=== PATIENT | female | born 1975 | race Caucasian/White ===

== ENCOUNTER 2017-11-21 10:39 | Emergency (ER) | payer BC, SELFPAY ==
[2017-11-21 10:49] VITALS: BP 136/96; PULSE 82; RESP 20; TEMP 36.6; O2SAT 98; BMI 28.1
[2017-11-21 11:01] LABS: Apearance,Urine Cloudy (Clear); Color,Urine Yellow (Yellow); PH,Urine 6.5 (5.0-8.5)
[2017-11-21 11:02] LABS: Bilirubin,Urine Negative (Negative); Blood, Urine 1+ (Negative); Glucose,Urine (UA) Negative (Negative); Ketones,Urine Negative (Negative); Protein,Urine 1+ (Negative); Specific Gravity, Urine 1.025 (1.005-1.030); UTC Leukocyte Esterase,Urine 2+ (Negative); UTC Nitrate,Urine Positive (Negative); Urobilinogen,Urine 0.2 EU/dl (0.2)
--- NOTE | 2017-11-21 11:11 | HMH.EDUTC ---
[facility] [place] Disposition Clinical Impression: UTI (urinary tract infection) Qualifiers: Urinary tract infection type: site unspecified Hematuria presence: with hematuria Qualified Code(s): N39.0 - Urinary tract infection, site not specified; R31.9 - Hematuria, unspecified Disposition: Home, Self-Care Condition on Discharge: Good Instructions: Urinary Tract Infection, DI for Urinary Tract Infection (UTI) Additional Instructions: *Increase fluids. Water not Soda or Tea *Start antibiotic immediately and be sure to take as ordered for the FULL length of time although you should start to see improvement over the next 48 hours *Pyridium as needed Remember this medication will turn your urine [place]. This is normal but it will stain what ever it gets on *You should not use Pyridium for more than 48 hours. If so , follow up with your primary physician to review urine culture and ensure that antibiotic is adequate for infection *Be SURE to follow up anytime for new or worsening symptoms. AND in 48 hours for urine culture results AND in 10-14 days to repeat UA to ensure infection is resolved and blood no longer present *Be sure to let your PCP know that we sent urine cultures from the [facility] so they can follow up to ensure that you area the on the correct antibiotic Prescriptions: Phenazopyridine HCl [Pyridium 200mg Tablet] 200 pow PO TID #6 tab Sulfamethoxazole/Trimethoprim [Bactrim DS tablet] 1 each PO BID #20 tab Referrals: Itz Trinidad MD [Primary Care Provider] - As needed Time of Disposition: 11:25 Medical Decision Making - Medical Records Medical records reviewed: Yes: I reviewed the patient's medical records. - Chapo Inquiry Pt receiving controlled substance: No Chapo was queried for this patient: No Vital Signs: 11/21/17 10:49 Temperature 98 F Temperature Source Temporal Artery Scan Pulse Rate [Brachial] 82 Respiratory Rate 20 Blood Pressure [Right Arm] 136/96 Blood Pressure Mean [Right Arm] 109 Blood Pressure Position [Right Arm] Sitting 02 Sat by Pulse Oximetry 98 Oxygen Delivery Method Room Air - Lab Data Lab results reviewed: Yes: I reviewed the patient's lab results. Lab Results 11/21/17 10:41: Urine Color Yellow, Urine Appearance Cloudy, Urine pH 6.5, Ur Specific [place] 1.025, Urine Protein 1+, Urine Glucose (UA) Negative, Urine Ketones Negative, Urine Blood 1+, Urine Nitrate Positive A, Urine Bilirubin Negative, Urine Urobilinogen 0.2, Ur Leukocyte Esterase 2+ A Orders (Tests/Meds): ORDERS Category Date Time Status Urine Culture Stat Micro 11/21/17 11:00 Received [facility] [place] HPI - General Stated complaint: Poss UTI Time Seen by Provider: 11/21/17 11:11 Mode of Arrival: Ambulatory Source of Information: Patient Limitations: No Limitations Description of Symptoms (Recalled from Triage Doc. by RN): FEELS LIKE SHE HAS A UTI, SMELL, BURNING X 2 DAYS HEENT Symptoms (Recalled from RN notes): No Resp Symptoms (Recalled from RN notes): No Skin Symptoms (Recalled from RN notes): No MS Symptoms (Recalled from RN notes): No Functional Status (Recalled from RN notes): NA - History of Present Illness Provider Complaint: Patient state that she thinks she may have UTI State that she noticed strong odor to her urine and having some slight pain in her lower back area around her kidneys and burning with urination State that she has had Kidney infection before and this feels alot like it did then - Related Data Home Medications Medication Instructions Recorded Confirmed Loratadine [Claritin 10mg Tablet] 10 mg PO DAILY 11/21/17 11/21/17 Montelukast Sodium [Singulair 10mg 10 mg PO PM 11/21/17 11/21/17 tablet] Previous Rx's Medication Instructions Recorded Phenazopyridine HCl [Pyridium 200 pow PO TID #6 tab 11/21/17 200mg Tablet] Sulfamethoxazole/Trimethoprim 1 each PO BID #20 tab 11/21/17 [Bactrim DS tablet] Allergies Allergy/AdvReac Type Severity Reaction Status Date / Scotty
--- NOTE | 2017-11-21 11:20 | ED_ITS ---
[facility] Disposition Clinical Impression: UTI (urinary tract infection) Qualifiers: Urinary tract infection type: site unspecified Hematuria presence: with hematuria Qualified Code(s): N39.0 - Urinary tract infection, site not specified ; R31.9 - Hematuria, unspecified Disposition: Home, Self-Care Condition on Discharge: Good Instructions: Urinary Tract Infection, DI for Urinary Tract Infection (UTI) Additional Instructions: *Increase fluids. Water not Soda or Tea *Start antibiotic immediately and be sure to take as ordered for the FULL length of time although you should start to see improvement over the next 48 hours *Pyridium as needed Remember this medication will turn your urine [place]. This is normal but it will stain what ever it gets on *You should not use Pyridium for more than 48 hours. If so , follow up with your primary physician to review urine culture and ensure that antibiotic is adequate for infection *Be SURE to follow up anytime for new or worsening symptoms. AND in 48 hours for urine culture results AND in 10-14 days to repeat UA to ensure infection is resolved and blood no longer present *Be sure to let your PCP know that we sent urine cultures from the [facility] so they can follow up to ensure that you area the on the correct antibiotic Prescriptions: Phenazopyridine HCl [Pyridium 200mg Tablet] 200 pow PO TID #6 tab Sulfamethoxazole/Trimethoprim [Bactrim DS tablet] 1 each PO BID #20 tab Referrals: Itz Trinidad MD [Primary Care Provider] - As needed Time of Disposition: 11:25 Medical Decision Making - Medical Records Medical records reviewed: Yes: I reviewed the patient's medical records. - Chapo Inquiry Pt receiving controlled substance: No Chapo was queried for this patient: No Vital Signs: 11/21/17 10:49 Temperature 98 F Temperature Source Temporal Artery Scan Pulse Rate [Brachial] 82 Respiratory Rate 20 Blood Pressure [Right Arm] 136/96 Blood Pressure Mean [Right Arm] 109 Blood Pressure Position [Right Arm] Sitting 02 Sat by Pulse Oximetry 98 Oxygen Delivery Method Room Air - Lab Data Lab results reviewed: Yes: I reviewed the patient's lab results. Lab Results 11/21/17 10:41: Urine Color Yellow, Urine Appearance Cloudy, Urine pH 6.5, Ur Specific [place] 1.025, Urine Protein 1+, Urine Glucose (UA) Negative, Urine Ketones Negative, Urine Blood 1+, Urine Nitrate Positive A, Urine Bilirubin Negative, Urine Urobilinogen 0.2, Ur Leukocyte Esterase 2+ A Orders (Tests/Meds): ORDERS Category Date Time Status Urine Culture Stat Micro 11/21/17 11:00 Received [facility] HPI - General Stated complaint: Poss UTI Time Seen by Provider: 11/21/17 11:11 Mode of Arrival: Ambulatory Source of Information: Patient Limitations: No Limitations Description of Symptoms (Recalled from Triage Doc. by RN): FEELS LIKE SHE HAS A UTI, SMELL, BURNING X 2 DAYS HEENT Symptoms (Recalled from RN notes): No Resp Symptoms (Recalled from RN notes): No Skin Symptoms (Recalled from RN notes): No MS Symptoms (Recalled from RN notes): No Functional Status (Recalled from RN notes): NA - History of Present Illness Provider Complaint: Patient state that she thinks she may have UTI State that she noticed strong odor to her urine and having some slight pain in her lower back area around her kidneys and burning with urination State that she has had Kidney infection before and this feels alot like it did then - Relat
[2017-11-21 11:26] VITALS: BP 136/96; PULSE 82; RESP 20; TEMP 36.6; O2SAT 98
== END 2017-11-21 11:27 | disposition home or self-care (01) ==
PROVIDERS: Emergency Provider Nurse Practitioner; Family Provider Internal Medicine Adolescent Medicine; PCP Internal Medicine Adolescent Medicine
DX: N39.0 Urinary tract infection, site not specified (principal); Z88.0 Allergy status to penicillin
CPT/HCPCS: 81003; 87086; 87088; 87186; 99201

== ENCOUNTER → 2018-03-20 08:53 | Outpatient (CLI) | payer BC, SELFPAY ==
--- NOTE | 2018-03-20 08:55 | MM_ITS ---
MM Dig screening mamm BI w/CAD CAD Screening COMPARISON: Digital mammograms with CAD 08/02/2012 INDICATION: There is no personal or family history of breast cancer TECHNIQUE: Standard CC and MLO images were obtained. R2 CAD reviewed. FINDINGS: Scattered fibroglandular densities are seen in both breasts. There is a possible change in fibroglandular densities subareolar region left breast with suggestion of architectural distortion on MLO view. There is benign-appearing calcification there this area as well. Recommend patient return for spot compression MLO view and 90 degrees lateral view and spot cc view of the subareolar region. There is no other suspicious adenopathy seen. IMPRESSION: Fibrofatty parenchyma possible change in fibro glandular densities left breast BI-RADS Category: 0 Need Additional Imaging Evaluation RECOMMENDED FOLLOW-UP: IMM - IMMEDIATE FOLLOW-UP RECOMMENDED (A letter has been sent to the patient regarding results of the study.)
== END ==
PROVIDERS: PCP Internal Medicine Adolescent Medicine; Visit Provider Obstetrics & Gynecology
DX: Z12.31 Encounter for screening mammogram for malignant neoplasm of breast (principal)
CPT/HCPCS: 77067

== ENCOUNTER → 2018-03-30 15:00 | Outpatient (CLI) | payer BC, SELFPAY ==
--- NOTE | 2018-03-30 15:03 | MM_ITS ---
MM Dig mamm DX unilat LT CAD Ordering Physician: Julien Soto MD Patient Age: 42 years: Female HISTORY: ITS.REASON: abnormal mammogram. Procedure. Spot CC and MLO and 90 degree view initially performed. Thereafter 4 breast rolled cc views were also included. Indication. Other study performed to further evaluate some questionable nodularity at the left breast retroareolar region.:. Today's left diagnostic mammogram left, compared to July 2012,, June 2011, November 18, 2017 studies Findings We again see Moderately dense heterogeneous breast pattern on the left. There subtle diffuse accentuation breast elements throughout left breast- either the patient's -control pills or premenstrual status. No focal dominant mass nor suspicious calculation. Prior films are very helpful and supportive stable mild asymmetry with no with no new areas of significant concern. Particular attention directed towards the retroareolar region and the fibroglandular elements here, at seem to dissipate and change from one view to another. I believe this is stable appearance but to be cautious I would suggest a follow-up left mammogram in 6-8 months to confirm stability IMPRESSION... No significant new areas of concern.. Evident on these additional views of left breast Asymmetric breast elements left retroareolar region. I believe stable but would suggest a follow-up left mammogram in 6-8 months to fully confirm stability here BI-RADS Category: 3 Probably Benign Finding Short Term Follow-up RECOMMENDED FOLLOW-UP: 6M - 6 MONTH FOLLOW-UP (A letter has been sent to the patient regarding the results of the study.)
== END ==
PROVIDERS: PCP Internal Medicine Adolescent Medicine; Visit Provider Obstetrics & Gynecology
DX: R92.8 Other abnormal and inconclusive findings on diagnostic imaging of breast (principal)
CPT/HCPCS: 77065

== ENCOUNTER → 2018-08-08 08:33 | Outpatient (POV) | payer BC, SELFPAY | PROVIDERS: Visit Provider Dermatology | DX: Z00.00 Encounter for general adult medical examination without abnormal findings (principal) ==

== ENCOUNTER → 2018-10-13 12:54 | Outpatient (CLI) | payer BC, SELFPAY ==
--- NOTE | 2018-10-13 12:57 | MM_ITS ---
MM Dig mamm DX unilat LT CAD INDICATION: Follow-up asymmetric density. ORDERING PHYSICIAN: Julien Soto MD PATIENT AGE: 43 years COMPARISON: 03/30/2018, 03/20/2018, 08/02/2012 TECHNIQUE: Standard images performed along with problem-solving views as before. FINDINGS: Asymmetric density once again noted in the retroareolar region similar to the previous exam which appear to compress out on the spot compression views. No malignant appearing mass or malignant appearing microcalcification is evident. There are stable asymmetric density in the medial aspect of the left breast as well. IMPRESSION: Benign findings. No evidence of malignancy. Recommend resume screening mammogram in 6 months BI-RADS Category: 2 Benign Finding(s) RECOMMENDED FOLLOW-UP: 6M - 6 MONTH FOLLOW-UP (A letter has been sent to the patient regarding results of the study.)
== END ==
PROVIDERS: PCP Internal Medicine Adolescent Medicine; Visit Provider Obstetrics & Gynecology
DX: R92.8 Other abnormal and inconclusive findings on diagnostic imaging of breast (principal)
CPT/HCPCS: 77065

== ENCOUNTER → 2018-11-07 08:22 | Outpatient (POV) | payer BC, SELFPAY | PROVIDERS: Visit Provider Dermatology | DX: Z00.00 Encounter for general adult medical examination without abnormal findings (principal) ==

== ENCOUNTER → 2019-04-02 15:54 | Outpatient (CLI) | payer BC, SELFPAY ==
--- NOTE | 2019-04-02 15:56 | MM_ITS ---
PROCEDURE: MM DIG SCREENING MAMM BI W/CAD CLINICAL INDICATION: SCREENING There is no personal or family history of breast cancer. COMPARISON: [facility] MM Dig screening mamm BI w/CAD from 03/20/2018 DXLT MM Dig mamm DX unilat LT CAD from 03/30/2018 DIG MAMM-DX UNI-LT from 10/13/2018 TECHNIQUE: Standard CC and MLO images were obtained. R2 CAD reviewed. FINDINGS: Moderate fibroglandular densities are seen in the central portions of both breast. There is a benign-appearing calcification left breast there is no suspicious lesion and no suspicious microcalcifications. IMPRESSION: Fibrofatty parenchyma with no suspicious lesions seen BI-RAD Category: 2 Benign Finding(s) FOLLOW-UP: 1YR 1 Year Follow-up (A letter has been sent to the patient regarding results of the study.) Dictated by: Dr. Azeem Ruffin MD 04/03/2019 16:[address] Azeem Ruffin MD in [place] 04/03/2019 16:56
== END ==
PROVIDERS: PCP Internal Medicine Adolescent Medicine; Visit Provider Obstetrics & Gynecology
DX: Z12.31 Encounter for screening mammogram for malignant neoplasm of breast (principal)
CPT/HCPCS: 77067

== ENCOUNTER → 2019-04-16 10:45 | Outpatient (CLI) | payer BC, SELFPAY ==
[2019-04-16 14:59] LABS: Anion Gap 13.9 mEq/L (5-15); Blood Urea Nitrogen 5 mg/dL (7-18); Calcium 8.9 mg/dL (8.5-10.1); Carbon Dioxide 27 mmol/L (21.0-32.0); Chloride 105 mmol/L (98-107); Chol/HDL Ratio 4.7 (1-3.5); Cholesterol 252 mg/dL (140-200); Creatinine,Serum 0.74 mg/dL (0.55-1.02); Estimated Glomerular Filt Rate 86 ml/min (>60); GFR (African American) 104 ML/MIN (>60); Glucose 120 mg/dL (74-106); HDL Cholesterol 54 mg/dL (29-89); LDL Cholesterol 159 mg/dL (0-130); Potassium 3.9 mmoL/L (3.5-5.1); Sodium 142 mmol/L (136-145); Thyroid Stimulating Hormone 2.24 uIU/ml (0.358-3.740); Triglycerides 197 mg/dL (30-200); VLDL Cholesterol 39 mg/dL (0-40)
[2019-04-16 17:29] LABS: Hemoglobin A1C 5.8 % (0.0-7.0)
== END ==
PROVIDERS: Visit Provider Internal Medicine Adolescent Medicine
DX: R03.0 Elevated blood-pressure reading, without diagnosis of hypertension (principal)
CPT/HCPCS: 36415; 80048; 80061; 83036; 84443

== ENCOUNTER → 2019-06-14 08:20 | Outpatient (CLI) | payer BC, SELFPAY ==
--- NOTE | 2019-06-14 08:20 | CT_ITS ---
PROCEDURE: CT SINUS WO CON CLINICAL HISTORY: congestion Deviated septum, nasal pressure, pressure behind the ears COMPARISON: SINUS CT SINUS (MAX-FACIAL W/O CONT) from 11/28/2014 TECHNIQUE: Axial images obtained with sagittal and coronal reformats. All CT scans at the facility use one or more dose reduction, viz: automated exposure control, ma/kV adjustment per patient size (including targeted exams where dose is matched to indication, i.e. head), or iterative reconstruction technique. FINDINGS: No significant mucosal thickening or sinus air-fluid level. There is moderate rightward nasal septal deviation with a small septal spur projecting toward the right resulting in severe narrowing of the right nasal canal. There are small bilateral christopher bullosa. The ostiomeatal units are patent. The orbits have an unremarkable appearance. Unremarkable TMJs.. No mastoid effusion IMPRESSION: 1. Moderate rightward nasal septal deviation with septal spur causing severe nasal canal narrowing. 2. No evidence of sinusitis Dictated by: Erich Trinidad MD 06/14/2019 17:35 Electronically signed by Erich Trinidad MD in [place] 06/14/2019 17:35
== END ==
PROVIDERS: PCP Internal Medicine Adolescent Medicine; Visit Provider Otolaryngology
DX: R09.81 Nasal congestion (principal)
CPT/HCPCS: 70486

== ENCOUNTER 2019-11-28 17:50 | Emergency (ER) | payer BC, SELFPAY ==
[2019-11-28 18:00] VITALS: BP 148/92; PULSE 73; RESP 20; TEMP 36.8; O2SAT 97; BMI 32.3
--- NOTE | 2019-11-28 18:08 | HMH.EDUTC ---
[facility] [place] Disposition Clinical Impression: Allergic rhinitis Qualifiers: Allergic rhinitis trigger: unspecified Allergic rhinitis seasonality: unspecified Qualified Code(s): J30.9 - Allergic rhinitis, unspecified Disposition: Home, Self-Care Condition on Discharge: Good Instructions: Allergic Rhinitis, DI for Allergic Rhinitis Additional Instructions: *Monitor Temp, Over the counter Motrin or Tylenol as directed/as needed Tylenol every 4 hours and Motrin every 6 hours (as long as your family doctor has told you that you can take it) for fever or pain. and straight to ER if unable to lower temp less than 101.0 after medication given *Warm salt water gargles may help to soothe the throat *Throat Lozenges *Warm fluids like tea with honey may help to soothe the throat *Sleep elevated *Humidifier/Vaporizer *Flonase 2 sprays in each nostril daily but be aware that it may take 2-3 days before you notice improvement Use inhaler as prescribed Follow up IMMEDIATELY for new or worsening symptoms or no Noticeable improvement over the next 48-72 hours. 911 for difficulty breathing or swallowing Prescriptions: Albuterol Sulfate [Proventil-HFA 90mcg/puff Inh] 1 - 2 puffs IH Q6HP PRN #1 inh PRN Reason: Shortness Of Breath Transmission Status: Pending to [facility] Referrals: Itz Trinidad MD [Primary Care Provider] - As needed Time of Disposition: 18:14 Medical Decision Making - Chapo Inquiry Pt receiving controlled substance: No Chapo was queried for this patient: No Vital Signs: 11/28/19 18:00 Temperature 98.2 F Temperature Source Oral Pulse Rate [Right Brachial] 73 Respiratory Rate 20 Blood Pressure [Right Arm] 148/92 H Blood Pressure Mean [Right Arm] 110 Blood Pressure Source [Right Arm] Automatic Cuff Blood Pressure Position [Right Arm] Sitting 02 Sat by Pulse Oximetry 97 Oxygen Delivery Method Room Air [facility] [place] HPI - General Stated complaint: Cough Time Seen by Provider: 11/28/19 18:09 Mode of Arrival: Ambulatory Source of Information: Patient Limitations: No Limitations Description of Symptoms (Recalled from Triage Doc. by RN): PATIENT C/O ASTHMATIC COUGH X 1 WEEK HEENT Symptoms (Recalled from RN notes): No Resp Symptoms (Recalled from RN notes): Yes Skin Symptoms (Recalled from RN notes): No MS Symptoms (Recalled from RN notes): No Functional Status (Recalled from RN notes): WNL - History of Present Illness Provider Complaint: Neil states that her allergies have been really bad and she has been taking her zyrtec but for last coulple of days her cough has been bad and she hasnt got an inhaler at home States that he cough is like an asmatic cough and has continued to get worse States that she hasnt had a fever or any flu like symptoms but when it gets this bad she usually gets a steriod shot to help - Related Data Home Medications Medication Instructions Recorded Confirmed Loratadine [Claritin 10mg 10 mg PO DAILY 11/21/17 06/04/19 Tablet] Montelukast Sodium [Singulair 10mg 10 mg PO PM 11/21/17 06/04/19 tablet] Previous Rx's Medication Instructions Recorded norgestimate-ethinyl estradiol 1 tab PO DAILY 30 Days #30 tab 02/20/19 Albuterol Sulfate [Proventil-HFA 1 - 2 puffs IH Q6HP PRN #1 inh 11/28/19 90mcg/puff Inh] Allergies Allergy/AdvReac Type Severity Reaction Status Date / Time Penicillins [PENICILLINS] Allergy Unknown Verified 06/04/19 13:04 - Worker's Comp Is this a Worker's Comp case?: No [facility] History - Hepatitis A Screen Drug use history?: No High risk sexual behaviors?: No History of sexually transmitted infection?: No Currently employed?: No Childcare worker?: No Do you have indoor plumbing?: Yes Do you have electricity?: Yes Attestation statement:: This patient has been screened for Hepatitis A risk factors. I have reviewed the patient's past medical history: Yes Other Medical History: Reports: Other Comment: Fx. Isaac (age
[2019-11-28 18:20] VITALS: BP 148/92; PULSE 73; RESP 20; TEMP 36.8; O2SAT 97
== END 2019-11-28 18:24 | disposition home or self-care (01) ==
PROVIDERS: Emergency Provider Nurse Practitioner; PCP Internal Medicine Adolescent Medicine
DX: J30.9 Allergic rhinitis, unspecified (principal); Z88.0 Allergy status to penicillin; Z90.09 Acquired absence of other part of head and neck
CPT/HCPCS: 96372; 99201

== ENCOUNTER → 2020-04-23 07:51 | Outpatient (CLI) | payer BC, SELFPAY ==
--- NOTE | 2020-04-23 08:11 | MM_ITS ---
PROCEDURE: MM DIG SCREENING MAMM BI W/CAD Digital Breast Tomosynthesis Included CLINICAL INDICATION: screening There is a history of breast cancer patient's maternal great aunt. COMPARISON: MG DXLT MM Dig mamm DX unilat LT CAD from 03/30/2018 MG DIG MAMM-DX UNI-LT from 10/13/2018 MG MM DIG SCREENING MAMM BI W/CAD from 04/02/2019 TECHNIQUE: Standard CC and MLO images and 3D Tomosynthesis was obtained. R2 CAD reviewed. FINDINGS: Mild to moderate scattered fibroglandular densities are seen in the subareolar regions and central portions of both breasts. There is a benign-appearing microcalcification left breast. Normal there is no suspicious lesion and no suspicious microcalcifications. IMPRESSION: Fibrofatty parenchyma with no suspicious lesions seen BI-RAD Category: 2 Benign Finding(s) FOLLOW-UP: 1YR 1 Year Follow-up (A letter has been sent to the patient regarding results of the study.) Dictated by: Dr. Azeem Ruffin MD 04/28/2020 14:44 Dr. Azeem Ruffin MD in [place] 04/28/2020 14:44
== END ==
PROVIDERS: PCP Internal Medicine Adolescent Medicine; Visit Provider Obstetrics & Gynecology
DX: Z12.31 Encounter for screening mammogram for malignant neoplasm of breast (principal)
CPT/HCPCS: 77063; 77067

== ENCOUNTER 2020-07-12 18:51 | Emergency (ER) | payer BC, SELFPAY ==
[2020-07-12 19:12] LABS: Apearance,Urine Cloudy (Clear); Color,Urine Straw (Yellow); Glucose,Urine (UA) Negative (Negative); Ketones,Urine Negative (Negative); Protein,Urine Negative (Negative)
[2020-07-12 19:13] LABS: Bilirubin,Urine Negative (Negative); Blood, Urine Trace (Negative)
[2020-07-12 19:14] LABS: Urobilinogen,Urine 0.2 EU/dl (0.2)
[2020-07-12 19:15] LABS: UTC Leukocyte Esterase,Urine Trace (Negative); UTC Nitrate,Urine Negative (Negative)
[2020-07-12 19:17] VITALS: BP 146/102; PULSE 95; RESP 20; TEMP 36.3; O2SAT 99; BMI 28.0
--- NOTE | 2020-07-12 19:38 | HMH.EDUTC ---
[facility] [place] Disposition Clinical Impression: Dysuria UTI (urinary tract infection) Qualifiers: Urinary tract infection type: site unspecified Hematuria presence: with hematuria Qualified Code(s): N39.0 - Urinary tract infection, site not specified Disposition: Home, Self-Care Condition on Discharge: Good Instructions: Urinary Tract Infection, Urine Culture Additional Instructions: Drink plenty of fluids. Take tylenol or ibuprofen for pain or fever. Take the medications as directed. Follow up with your regular doctor. GO TO THE ER FOR ANY WORSENING SYMPTOMS The pyridium will make your urine turn orange, this is an expected side effect. It will stain your clothes if it comes into contact with them. Prescriptions: Ondansetron [Zofran 4mg ODT] 4 mg PO Q8HP PRN #12 tab.rapdis PRN Reason: Nausea Transmission Status: Pending to [facility] # Sulfamethoxazole/Trimethoprim [Bactrim DS tablet] 1 each PO BID 7 Days #14 tab Transmission Status: Pending to [facility] # Fluconazole [Diflucan 150mg tab] 150 mg PO ONCE #1 tab Transmission Status: Pending to [facility] # Phenazopyridine HCl [Pyridium 200mg Tablet] 200 pow PO TID #6 tab Transmission Status: Pending to [facility] # Referrals: Itz Trinidad MD [Primary Care Provider] - Time of Disposition: 19:52 Medical Decision Making - Medical Records Medical records reviewed: No: I reviewed the patient's medical records. - Chapo Inquiry Pt receiving controlled substance: No Vital Signs: 07/12/20 19:17 Temperature 97.4 F L Temperature Source Oral Pulse Rate [Right Brachial] 95 H Respiratory Rate 20 Blood Pressure [Right Arm] 146/102 H Blood Pressure Mean [Right Arm] 116 Blood Pressure Source [Right Arm] Automatic Cuff Blood Pressure Position [Right Arm] Sitting 02 Sat by Pulse Oximetry 99 Oxygen Delivery Method Room Air - Lab Data Lab results reviewed: Yes: I reviewed the patient's lab results. Lab Results 07/12/20 18:57: Urine Color Straw, Urine Appearance Cloudy, Urine pH 6.0, Ur Specific [place] 1.010, Urine Protein Negative, Urine Glucose (UA) Negative, Urine Ketones Negative, Urine Blood Trace, Urine Nitrate Negative, Urine Bilirubin Negative, Urine Urobilinogen 0.2, Ur Leukocyte Esterase Trace Orders (Tests/Meds): ED MEDICATIONS Discontinued Medications Generic Name Dose Route Start Last Admin Trade Name Julio PRN Reason Stop Dose Admin Ondansetron HCl 4 mg 07/12/20 19:43 07/12/20 19:52 Ondansetron 4mg Odt SL 07/12/20 19:44 4 mg ONCE ONE Administration Phenazopyridine HCl 200 mg 07/12/20 19:43 07/12/20 19:52 Phenazopyridine 200mg Tablet PO 07/12/20 19:44 200 mg ONCE ONE Administration Trimethoprim/Sulfamethoxazole 1 each 07/12/20 19:43 07/12/20 19:52 Sulfa/Trimethoprim 1 Tablet PO 07/12/20 19:44 1 each ONCE ONE Administration Protocol ORDERS Category Date Time Status Urine Culture Routine Micro 07/12/20 19:05 Received [facility] [place] HPI - General Stated complaint: Possible UTI Time Seen by Provider: 07/12/20 19:39 Mode of Arrival: Ambulatory Source of Information: Patient Limitations: No Limitations Description of Symptoms (Recalled from Triage Doc. by RN): PATIENT C/O URINARY FREQUENCY X 2 DAYS HEENT Symptoms (Recalled from RN notes): No Resp Symptoms (Recalled from RN notes): No Skin Symptoms (Recalled from RN notes): No MS Symptoms (Recalled from RN notes): No Functional Status (Recalled from RN notes): WNL - History of Present Illness Provider Complaint: She states that for the past 2 days she has had low back pain and dysuria. She has a history of getting uti's at times. She denies any fever/chills. She thinks that she has a very early UTI - Related Data Home Medications Medication Instructions Recorded Confirmed Loratadine [Claritin 10mg 10 mg PO DAILY 11/21/17 06/04/19 Tablet] Mo
[2020-07-12 19:58] VITALS: BP 146/102; PULSE 95; RESP 20; TEMP 36.3; O2SAT 99
== END 2020-07-12 20:00 | disposition home or self-care (01) ==
PROVIDERS: Emergency Provider Nurse Practitioner Family; PCP Internal Medicine Adolescent Medicine
DX: N30.00 Acute cystitis without hematuria (principal); R03.0 Elevated blood-pressure reading, without diagnosis of hypertension; Z88.0 Allergy status to penicillin
CPT/HCPCS: 81003; 87086; 87088; 87186; 99202; G0463

== ENCOUNTER → 2021-05-06 15:58 | Outpatient (CLI) | payer BC, SELFPAY ==
--- NOTE | 2021-05-06 16:01 | MM_ITS ---
PROCEDURE INFORMATION: Exam: MG Bilateral Screening 3D Mammography Exam date and time: 05/06/2021 4:01 PM Age: 45 years old Clinical indication: Encounter for screening mammogram for malignant neoplasm of breast TECHNIQUE: Imaging protocol: Bilateral screening tomosynthesis and 2D mammography including computer-aided detection (CAD) when performed. COMPARISON: 1. MG MM DIG SCREENING MAMM BI W/CAD 04/23/2020 8:23 AM 2. MG MM DIG SCREENING MAMM BI W/CAD 04/02/2019 4:11 PM FINDINGS: MAMMOGRAPHY: Breast composition: The breast tissue is composed of scattered areas of fibroglandular density. Mass: None. Architectural distortion: None. Calcifications: No suspicious calcifications. Asymmetric density: None. Skin thickening: None. Axillary adenopathy: None. IMPRESSION: No mammographic evidence of malignancy. Annual screening is recommended unless otherwise clinically indicated. ASSESSMENT: BI-RADS Category 1: Negative
== END ==
PROVIDERS: PCP Internal Medicine Adolescent Medicine; Visit Provider Obstetrics & Gynecology
DX: Z12.31 Encounter for screening mammogram for malignant neoplasm of breast (principal)
CPT/HCPCS: 77063; 77067

== ENCOUNTER → 2021-05-26 15:48 | Outpatient (POV) | payer BC, SELFPAY | PROVIDERS: Visit Provider Dermatology | DX: Z00.00 Encounter for general adult medical examination without abnormal findings (principal) ==

== ENCOUNTER → 2022-04-28 16:26 | Outpatient (CLI) | payer BC, SELFPAY ==
--- NOTE | 2022-04-28 16:32 | XR_ITS ---
FINAL REPORT CLINICAL HISTORY: PAIN FINDINGS: LEFT FOOT Three views of the left foot demonstrate no acute fracture or dislocation. The joint spaces are preserved. The soft tissues are unremarkable. IMPRESSION: No acute bony abnormality. Reviewed, Interpreted and Dictated by Vikash Malone MD Transcribed by Geno Gupta Authenticated and [facility]
== END ==
LOC: RAD 16:27
PROVIDERS: PCP Internal Medicine Adolescent Medicine; Visit Provider Internal Medicine Adolescent Medicine
DX: M79.672 Pain in left foot (principal)
CPT/HCPCS: 73630

== ENCOUNTER 2023-05-29 14:31 | Emergency (ER) | payer BC, SELFPAY ==
[2023-05-29 15:00] VITALS: BP 152/91; PULSE 102; RESP 18; TEMP 37.1; O2SAT 95; BMI 29.5
--- NOTE | 2023-05-29 15:16 | ED_ITS ---
Discharge Plan Disposition Patient Disposition: Home, Self-Care Condition: Good Prescriptions Prescriptions: New azithromycin [Zithromax] 250 mg tablet 250 mg PO UD DOSE PK Qty: 6 0RF Rx Instructions: Take two (2) tablets today, then one (1) tablet days #2 thru #5 benzonatate [benzonatate] 100 mg capsule 100 mg PO TIDP PRN (Reason: Cough) Qty: 30 0RF methylprednisolone 4 mg Tablets,Dose Pack 4 mg PO DIRECTED 6 Days Qty: 21 0RF Rx Instructions: Take 1 pack as directed for 6 days No Action valacyclovir [Valtrex] 500 mg tablet 500 mg PO DAILY montelukast 10 MG tablet 10 mg PO PM albuterol sulfate 200 PUFFS HFA aerosol inhaler 1 - 2 puffs inhalation Q6HP PRN (Reason: Shortness Of Breath) Qty: 1 0RF cetirizine [Zyrtec] 10 mg Tablet 10 mg PO DAILY Jardiance 10 mg tablet 10 mg PO DAILY Patient Comments: TAKE ONE TABLET BY MOUTH EVERY DAY IN THE MORNING Referrals Follow up/Referrals: Itz Trinidad MD [Primary Care Provider] - See instructions Activity Restrictions/Add. Instructions Additional Instructions/Restrictions: Drink plenty of fluids. Take tylenol or ibuprofen for pain or fever. Take the medications as directed. Follow up with your regular doctor. GO TO THE ER FOR ANY WORSENING SYMPTOMS Clinical Impressions Clinical Impression: Acute bronchitis, Sinusitis Instructions Patient Instructions: DI for Sinusitis, Sinusitis Discharge ED Provider: Tony Elias [facility] General Stated complaint: cough Time Seen by Provider: 05/29/23 15:16 History of Present Illness Provider Complaint: She states that for the past 1 month she has had sinus co ngestion and a cough. Related Data Home Medications Medication Instructions Recorded Confirmed montelukast 10 mg tablet 10 mg PO PM ALLERGIES 11/21/17 05/29/23 valacyclovir 500 mg tablet 500 mg PO DAILY 06/02/21 05/29/23 (Valtrex) cetirizine 10 mg tablet (Zyrtec) 10 mg PO DAILY allergies 05/29/23 05/29/23 empagliflozin 10 mg tablet 10 mg PO DAILY 05/29/23 05/29/23 (Jardiance) Previous Rx's Medication Instructions Recorded albuterol sulfate 90 mcg/actuation 1 - 2 puffs inhalation Q6HP PRN 11/28/19 aerosol inhaler Shortness Of Breath #1 inh azithromycin 250 mg tablet 250 mg PO UD DOSE PK #6 tabs 05/29/23 (Zithromax) benzonatate 100 mg capsule 100 mg PO TIDP PRN Cough #30 caps 05/29/23 methylprednisolone 4 mg tablets in 4 mg PO DIRECTED 6 days #21 tabs 05/29/23 a dose pack Allergies Allergy/AdvReac Type Severity Reaction Status Date / Time Penicillins [PENICILLINS] Allergy Unknown Verified 05/29/23 15:28 [facility] Disclaimer: The information contained in this section may have been updated after the patient was seen, as this information can be updated by other users. Surgical History History of 2 sections Social History Smoking Status: Never smoker alcohol intake: never substance use type: denies use current occupational status: employed Travel in the last 8 weeks: None household members: children housing: house ROS Obtained: Yes All systems reviewed & no additional complaints except as documented Constitutional Constitutional: Reports poor appetite Eyes Eyes: Reports system reviewed and no additional complaints, except as documented ENT Ears, Nose, Mouth, and Throat: Reports as per HPI Cardiovascular Cardiovascular: Reports system reviewed and no additional complaints, except as documented and Denies chest pain Respiratory Respiratory: Denies shortness of breath, Reports chest congestion, Reports coug h, Denies stridor and Denies wheezing Gastrointestinal Gastrointestingal: Reports system reviewed and no additional complaints, except as documented; Denies abdominal pain, diarrhea or vomiting Musculoskeletal Musculoskeletal: Reports system reviewed and no additional complaints, except as documented and Denies arthralgias Integumentary/Breasts Skin/Breast: Reports system reviewed and no additional complaints, except as documented and Denies rash Neurologic Neurologic: Denies paresthesias Allergic/Immunologic Allergic/Immunologic: Denies wheezing Physical Exam General General appearance: alert and in no apparent distress Head Head exam: atraumatic, normocephalic and normal inspection Eye Eye exam: Present normal appearance, PERRL and EOMI ENT ENT exam: Present normal exam, normal oropharynx, mucous membranes moist, TM's normal bilaterally and normal external ear exam Neck Neck exam: Present normal inspection, full ROM and trachea midline; Absent meningismus or lymphadenopathy Chest Chest inspection: Present normal inspection and symmetric chest wall rise; Absent tenderness Respiratory Respiratory exam: Present normal lung sounds bilaterally; Absent respiratory distress Cardiovascular Cardiovascular exam: Present regular rate and normal rhythm; Absent JVD Abdominal Exam Abdominal exam: Present soft and normal bowel sounds; Absent distention, tenderness or guarding Extremities Exam Extremities exam: Present normal inspection, full ROM and normal capillary refill; Absent calf tenderness Back Exam Back exam: Present normal inspection; Absent tenderness Neurological Exam Neurological exam: Present alert and oriented X3 Psychiatric Psychiatric exam: Present normal affect and normal mood Skin Skin exam: Present warm, dry, intact and normal color Lymphatic Lymphatic Findings: no adenopathy Medical Decision Making Medical Records Medical records reviewed: No I reviewed the patient's medical records. Chapo Inquiry Pt receiving controlled substance: No
[2023-05-29 16:01] VITALS: BP 152/91; PULSE 102; RESP 18; TEMP 37.1; O2SAT 95
== END 2023-05-29 16:01 | disposition home or self-care (01) ==
PROVIDERS: Emergency Provider Nurse Practitioner Family; PCP Internal Medicine Adolescent Medicine
DX: J20.9 Acute bronchitis, unspecified (principal); J01.90 Acute sinusitis, unspecified; R05.9 Cough, unspecified; R09.81 Nasal congestion; R09.89 Other specified symptoms and signs involving the circulatory and respiratory systems
CPT/HCPCS: 99212; 99214; G0463

== ENCOUNTER 2023-06-05 08:15 | Emergency (ER) | payer BC, SELFPAY ==
[2023-06-05 08:30] VITALS: BP 124/91; PULSE 89; RESP 18; TEMP 36.7; O2SAT 98; BMI 34.3
--- NOTE | 2023-06-05 08:47 | EXP.UTC ---
Discharge Plan Disposition Patient Disposition: Home, Self-Care Condition: Good Prescriptions Prescriptions: New fluticasone propionate [Flonase Allergy Relief] 50 mcg/actuation spray,suspension 1 - 2 spray intranasal DAILY Qty: 16 0RF Rx Instructions: administer into each nostril daily promethazine-DM 6.25-15 mg/5 mL syrup 5 ml PO Q6H PRN (Reason: cough) Qty: 118 0RF No Action Jardiance 10 mg tablet 10 mg PO DAILY Patient Comments: TAKE ONE TABLET BY MOUTH EVERY DAY IN THE MORNING Referrals Follow up/Referrals: Itz Trinidad MD [Primary Care Provider] - See instructions Activity Restrictions/Add. Instructions Additional Instructions/Restrictions: Use Promethazine- DM at night it may help you rest Use Flonase daily as prescribed Over the counter Coriciden Sinus HBP may help to relieve your congestion Follow up with your Family Doctor if no improvement or any worsening of symptoms Using a Cool Mist Humidifer or Vaporizer may help with cough and congestion Clinical Impressions Clinical Impression: Cough Qualifiers: Cough type: unspecified Qualified Code(s): R05.9 - Cough, unspecified Instructions Patient Instructions: Cough Discharge ED Provider: Piedad Fuller [facility] General Stated complaint: cough, sore throat, ear pain Mode of Arrival: Ambulatory Source of Information: Patient Limitations: No Limitations Time Seen by Provider: 06/05/23 08:48 Description of Symptoms (Recalled from Triage Doc. by RN): PATIENT C/O COUGH, SORE THROAT, AND FLUID IN EARS X 2 WEEKS HEENT Symptoms (Recalled from RN notes): Yes Resp Symptoms (Recalled from RN notes): Yes Skin Symptoms (Recalled from RN notes): No MS Symptoms (Recalled from RN notes): No Functional Status (Recalled from RN notes): WNL History of Present Illness Provider Complaint: Patient states that she was seen and treated for bronchitis on alpa States that she has finished her steriods and antibiotic but her cough has not got any better and keeping her up at night and making her throat raw and scratchy from the coughing and her ears still feel full of fluid Related Data Home Medications Medication Instructions Recorded Confirmed empagliflozin 10 mg tablet 10 mg PO DAILY 05/29/23 06/05/23 (Jardiance) Previous Rx's Medication Instructions Recorded fluticasone propionate 50 1 - 2 spray intranasal DAILY #16 06/05/23 mcg/actuation nasal grams spray,suspension (Flonase Allergy Relief) promethazine-DM 6.25 mg-15 mg/5 mL 5 ml PO Q6H PRN cough #118 mL 06/05/23 oral syrup Allergies Allergy/AdvReac Type Severity Reaction Status Date / Time Penicillins [PENICILLINS] Allergy Unknown Verified 05/29/23 15:28 Worker's Comp Is this a Worker's Comp case?: No [facility] Disclaimer: The information contained in this section may have been updated after the patient was seen, as this information can be updated by other users. Medical History (Updated 06/05/23 @ 09:01 by Piedad Fuller APRN) Tonsillar abscess Surgical History History of 2 sections Social History Smoking Status: Never smoker alcohol intake: never substance use type: denies use current occupational status: employed Travel in the last 8 weeks: None household members: children housing: house ROS Obtained: Yes All systems reviewed & no additional complaints except as documented and Yes Systems reviewed as appropriate & no additional complaints except as documented Constitutional Constitutional: Reports system reviewed and no additional complaints, except as documented and Reports as per HPI ENT Ears, Nose, Mouth, and Throat: Reports system reviewed and no additional complaints, except as documented, Reports as per HPI, Reports otalgia and Reports sore throat (scratchy from coughing so much ) Cardiovascular Cardiovascular: Reports system reviewed and no additional complaints, except as documented and Reports as per HPI Respiratory Respiratory: Reports system reviewed and no additional complaints, except as documented, Reports as per HPI, Denies shortness of breath, Denies chest congestion and Reports cough Gastrointestinal Gastrointestingal: Reports system reviewed and no additional complaints, except as documented and as per HPI Physical Exam General General appearance: alert and in no apparent distress ENT ENT exam: Present mucous membranes moist Expanded ENT Exam TM/Canal exam: Bilateral TM: bulging (clear) Throat exam: Present normal inspection Respiratory Respiratory exam: Present normal lung sounds bilaterally; Absent respiratory distress or wheezes Cardiovascular Cardiovascular exam: Present regular rate, normal rhythm and normal heart sounds Neurological Exam Neurological exam: Present alert, oriented X3 and normal gait Medical Decision Making Chapo Inquiry Pt receiving controlled substance: No Chapo was queried for this patient: No Vital Signs: 06/05/23 08:30 Temperature 98.1 F Temperature Source Oral Pulse Rate [Left Brachial] 89 Respiratory Rate 18 Blood Pressure [Left Arm] 124/91 H Blood Pressure Mean [Left Arm] 102 Blood Pressure Source [Left Arm] Automatic Cuff Blood Pressure Position [Left Arm] Sitting 02 Sat by Pulse Oximetry 98 Oxygen Delivery Method Room Air
[2023-06-05 09:04] VITALS: BP 124/91; PULSE 89; RESP 18; TEMP 36.7; O2SAT 98
== END 2023-06-05 09:15 | disposition home or self-care (01) ==
PROVIDERS: Emergency Provider Nurse Practitioner; PCP Internal Medicine Adolescent Medicine
DX: R05.9 Cough, unspecified (principal); R07.0 Pain in throat; H92.03 Otalgia, bilateral
CPT/HCPCS: 99212; 99214; G0463

== ENCOUNTER 2023-12-02 09:49 | Outpatient (CLI) | payer BC, SELFPAY ==
--- NOTE | 2023-12-02 09:53 | MM_ITS ---
PROCEDURE INFORMATION: Exam: MG Bilateral Screening 3D Mammography Exam date and time: 12/02/2023 9:45 AM Age: 48 years old Clinical indication: Screening examination TECHNIQUE: Imaging protocol: Bilateral Screening tomosynthesis and 2D mammography including computer-aided detection (CAD) when performed. COMPARISON: 1. MG MM DIG SCREENING MAMM BI W/CAD 05/06/2021 4:16 PM 2. MG MM DIG SCREENING MAMM BI W/CAD 04/23/2020 8:23 AM FINDINGS: MAMMOGRAPHY: Breast composition: There are scattered areas of fibroglandular density. Mass: None. Architectural distortion: None. Calcifications: No suspicious calcifications. Asymmetric density: None. Skin thickening: None. Axillary adenopathy: None. IMPRESSION: No mammographic evidence of malignancy. Annual screening is recommended unless otherwise clinically indicated. ASSESSMENT: BI-RADS Category 1: Negative
== END 2023-12-02 23:59 | disposition home or self-care (01) ==
LOC: RAD 09:49
PROVIDERS: PCP Internal Medicine Adolescent Medicine; Visit Provider Obstetrics & Gynecology Gynecology
DX: Z12.31 Encounter for screening mammogram for malignant neoplasm of breast (principal)
CPT/HCPCS: 77063; 77067

== ENCOUNTER 2024-04-18 16:00 | Outpatient (CLI) | payer BC, SELFPAY ==
--- NOTE | 2024-04-18 16:04 | XR_ITS ---
PROCEDURE INFORMATION: Exam: XR Chest Exam date and time: 04/18/2024 4:07 PM Age: 48 years old Clinical indication: Cough; Additional info: Chronic cough TECHNIQUE: Imaging protocol: Radiologic exam of the chest. Views: 2 views. COMPARISON: No relevant prior studies available. FINDINGS: Lungs: The lungs appear clear. No focal areas of consolidation. Pleural spaces: No pleural effusions. Negative for pneumothorax. Heart/Mediastinum: Cardiac silhouette and pulmonary vasculature are within range of normal. Bones/joints: There is no evidence of acute fracture. IMPRESSION: Negative for an acute cardiopulmonary abnormality.
== END 2024-04-18 23:59 | disposition home or self-care (01) ==
LOC: RAD 16:01
PROVIDERS: PCP Internal Medicine Adolescent Medicine; Visit Provider Internal Medicine Adolescent Medicine
DX: R05.3 Chronic cough (principal)
CPT/HCPCS: 71046

== ENCOUNTER 2024-04-24 14:46 | Outpatient (CLI) | payer BC, SELFPAY ==
[2024-04-24 15:30] VITALS: PULSE 82; PULSE 95
[2024-04-24] MEDS: ALBUTEROL 0.083% 2.5 MG/3 ML NEB IH (15:30)
== END 2024-04-24 23:59 | disposition home or self-care (01) ==
LOC: RT 14:46
PROVIDERS: PCP Internal Medicine Adolescent Medicine; Visit Provider Internal Medicine Adolescent Medicine
DX: R05.3 Chronic cough (principal)
CPT/HCPCS: 94060; 94640; 94726; 94729; J7613

== ENCOUNTER 2024-08-27 13:52 | Emergency (ER) | payer BC, SELFPAY ==
[2024-08-27] VITALS (7 sets, daily range): BP systolic 133–167; BP diastolic 75–91; PULSE 68–79; RESP 16–18; TEMP 37.1; O2SAT 97–100; BMI 29.5
--- NOTE | 2024-08-27 14:13 | XR_ITS ---
PROCEDURE INFORMATION: Exam: XR Chest Exam date and time: 08/27/2024 4:11 PM Age: 48 years old Clinical indication: Other: Mid upper abd pain TECHNIQUE: Imaging protocol: Radiologic exam of the chest. Views: 1 view. COMPARISON: CR XR CHEST 2V 04/18/2024 4:07 PM FINDINGS: Lungs: Unremarkable. No consolidation. Pleural spaces: Unremarkable. No pleural effusion. No pneumothorax. Heart/Mediastinum: Unremarkable. No cardiomegaly. Bones/joints: Unremarkable. IMPRESSION: No acute findings.
--- NOTE | 2024-08-27 14:15 | ECG_ITS ---
APPROVED REPORT Exam: Resting ECG HR:76 bpm ECG Measurements Heart Rate 76 AXES NH 157 P 12 QRSd 77 QRS 17 QT 380 T 23 QTc 411 Conclusion Sinus rhythm No acute ischemic changes Electronically signed by : ASHELY FROST, 08/28/2024 14:36:43
[2024-08-27 14:26] LABS: Microscopic, Urine URINE MICROSCOPIC (MICROSCOPIC)
[2024-08-27] MEDS: KETOROLAC 30MG/ML VIAL 15 MG IV (14:40)
[2024-08-27] MEDS: ACETAMINOPHEN 1,000MG/100ML VIAL 1000 MG IV (14:41)
[2024-08-27] MEDS: ONDANSETRON 4MG/2ML VIAL 4 MG IV (14:41)
[2024-08-27 14:59] LABS: Albumin Level 4.6 g/dl (3.5-5.0); Chloride 101 mmol/L (98-107); Potassium 3.5 mmoL/L (3.5-5.1); Sodium 139 mmol/L (136-145)
--- NOTE | 2024-08-27 14:59 | HMH.EDGENADL ---
Discharge Plan Disposition Patient Disposition: Home, Self-Care Chief Complaint: Abdominal Pain Prescriptions Prescriptions: No Action Jardiance 10 mg tablet 10 mg PO DAILY Patient Comments: TAKE ONE TABLET BY MOUTH EVERY DAY IN THE MORNING montelukast 10 mg tablet 10 mg PO DAILY Patient Comments: TAKE ONE TABLET BY MOUTH EVERY DAY rosuvastatin 10 mg tablet 10 mg PO DAILY Patient Comments: TAKE ONE TABLET BY MOUTH EVERY DAY levocetirizine 5 mg tablet 5 mg PO DAILY Patient Comments: TAKE ONE TABLET BY MOUTH EVERY DAY fluticasone propionate [Flonase Allergy Relief] 50 mcg/actuation spray,suspension 1 - 2 spray intranasal DAILY Qty: 16 0RF Rx Instructions: administer into each nostril daily Referrals Follow up/Referrals: Itz Trinidad MD [Primary Care Provider] - See instructions Arun Washington II, MD [Staff Physician] - See instructions Activity Restrictions/Add. Instructions Additional Instructions/Restrictions: No emergent medical condition identified today. As discussed on CT scan your liver was at the upper limits of normal had a small 1 cm incidental nonspecific lesion indicated by radiology with the recommended outpatient ultrasound. Additionally your AST is mildly elevated and is likely secondary to a component of fatty liver disease. If your symptoms persist please return to the emergency department otherwise I would recommend an outpatient follow-up for an EGD with Dr. Washington if he remains stable. There is some diagnostic uncertainty please return with any significant persistence or worsening of your symptoms. Clinical Impressions Clinical Impression: Epigastric abdominal pain, Lesion of liver, Elevated AST (SGOT), Obesity Instructions Patient Instructions: DI for Acute Abdominal Pain Print Language Print Language: Pashto Discharge ED Provider: Luis Mckeon General Adult HPI <Luis Mckeon MD - Last Filed: 08/27/24 15:10> General Chief complaint: Abdominal Pain Stated complaint: Abd/back pain Clammy feeling Time Seen by Provider: 08/27/24 14:19 Mode of Arrival: Ambulatory Source of Information: Patient Description of Symptoms (Recalled from ER Triage Doc. by RN): Pt presents for evaluation for evaluation of sudden onset of mid upper abd pain that started at 1240 today. Pt states the pain radiates around to the left of her back. Pt states when the pain started she became clammy, slight nausea, and felt flushed History of Present Illness HPI narrative: Please note that above description of symptoms, in this electronic medical record under categorization of recalled from ER triage doctor by RN are reflective of an initial nursing assessment, however, is not reflective of my full history and physical exam that was personally taken and clarified. Consequentially, this preceding description of symptoms, which may include the patient's categorized chief complaint in the EMR, do not reflect my personal clinical impression, and the ultimate description of history of present illness and patient stated complaints should be deferred to this section of the note. Unless stated otherwise or congruent with this section of the note, additional signs, symptoms, or incongruence should be interpreted as inaccurate with my clinical impression. Related Data Home Medications ?Medication ?Instructions ?Recorded ?Confirmed empagliflozin 10 mg tablet 10 mg PO DAILY 05/29/23 08/27/24 (Jardiance) levocetirizine 5 mg tablet 5 mg PO DAILY 08/27/24 08/27/24 montelukast 10 mg tablet 10 mg PO DAILY 08/27/24 08/27/24 rosuvastatin 10 mg tablet 10 mg PO DAILY 08/27/24 08/27/24 Previous Rx's ?Medication ?Instructions ?Recorded fluticasone propionate 50 1 - 2 spray intranasal DAILY #16 06/05/23 mcg/actuation nasal grams spray,suspension (Flonase Allergy Relief) Allergies Allergy/AdvReac Type Severity Reaction Status Date / Time Penicillins (PENICILLINS) Allergy Unknown Verified 05/29/23 15:28 [facility] <Luis Mckeon MD - Last Filed: 08/27/24 15:10> [facility] Disclaimer: The information contained in this section may have been updated after the patient was seen, as this information can be updated by other users. Medical History (Updated 08/27/24 @ 17:40 by Heather Dinh MD) Tonsillar abscess Surgical History History of 2 sections Social History Smoking Status: Never smoker alcohol intake: never substance use type: denies use current occupational status: employed Travel in the last 8 weeks: None household members: children housing: house Have you lived/traveled outside [place] in past 30 days?: No Contact w/someone who lives/traveled outside US past 30 days?: No Exposure to someone with infectious disease in past 14 days?: No Do you have a fever (greater than 100.4 F or 38 C)?: No Have you tested positive for COVID-19: No Exposed to someone with COVID-19 in past 14 days?: No Do you have a sore throat?: No Do you have a cough?: No Do you have any weakness?: Yes Do you have any diarrhea?: No Are you experiencing any unusual bleeding?: No Do you have any muscle aches/pain?: No Do you have any abdominal pain?: No Are you experiencing loss of taste or smell?: No Other Medical History Have you received the Flu Vaccine for this season: No Have you received the Pneumonia Vaccine: No <Luis Mckeon MD - Last Filed: 08/27/24 15:10> ROS Obtained: Yes All systems reviewed & no additional complaints except as documented Physical Exam <Luis Mckeon MD - Last Filed: 08/27/24 15:10> General General appearance: alert Head Head exam: atraumatic and normocephalic Eye Eye exam: Present normal appearance, PERRL and EOMI Neck Neck exam: Present normal inspection, full ROM and trachea midline Respiratory Respiratory exam: Absent respiratory distress, wheezes, stridor, accessory muscle use or prolonged expiratory phase Cardiovascular Cardiovascular exam: Present other (Pulses equal symmetric in upper and lower extremities) Abdominal Exam Abdominal exam: Present soft and Ayon's sign; Absent distention, tenderness, guarding, rebound, rigidity or pulsatile mass Abdominal tenderness: Present RUQ and moderate Extremities Exam Extremities exam: Absent edema Neurological Exam Neurological exam: Present alert, oriented X3 and CN II-XII intact; Absent motor sensory deficit Skin Skin exam: Present warm and dry; Absent diaphoresis or erythema Medical Decision Making <Luis Mckeon MD - Last Filed: 08/27/24 15:10> Medical Records Medical records reviewed: Yes I reviewed the patient's medical records. Screening: Per USPSTF and CDC recommendations, given the prevalence of disease in our region, it is our hospital?s policy to screen for HIV and viral Hepatitis for all patients aged 18 and over and those with ongoing risk factors. Chapo Inquiry Pt receiving controlled substance: No Chapo was queried for this patient: No Vital Signs: 08/27/24 14:09 08/27/24 14:30 08/27/24 15:00 Temperature 98.7 F Temperature Source Temporal Artery Scan Pulse Rate 79 68 Pulse Rate [Right] 79 Respiratory Rate 18 Blood Pressure 153/91 H 140/84 Blood Pressure [Right Arm] 133/75 Blood Pressure Mean [Right Arm] 94 Blood Pressure Source [Right Arm] Automatic Cuff Blood Pressure Position [Right Arm] Sitting 02 Sat by Pulse Oximetry 99 100 99 Oxygen Delivery Method Room Air 08/27/24 15:30 08/27/24 16:00 08/27/24 16:30 Temperature Temperature Source Pulse Rate 68 73 74 Pulse Rate [Right] Respiratory Rate Blood Pressure 147/87 H 154/91 H 149/91 H Blood Pressure [Right Arm] Blood Pressure Mean [Right Arm] Blood Pressure Source [Right Arm] Blood Pressure Position [Right Arm] 02 Sat by Pulse Oximetry 99 100 97 Oxygen Delivery Method Room Air Lab Data Lab Results 08/27/24 14:22: Urine Color Yellow, Urine Appearance Clear, Urine pH 5.5, Ur Specific [place] >= 1.030, Urine Protein Negative, Urine Glucose (UA) Negative, Urine Ketones Negative, Urine Blood Negative, Urine Nitrate Negative, Urine Bilirubin Negative, Urine Urobilinogen 0.2, Ur Leukocyte Esterase Negative, Urine RBC None, Urine WBC Occasional, Ur Squamous Epith Cells 3-5, Calcium Oxalate Crystal 2+, Urine Bacteria 2+ 08/27/24 14:39: WBC 13.7 H, RBC 4.95, Hgb 14.0, Hct 43.6, MCV 88.1, MCH 28.3, MCHC 32.1, RDW 13.4, Plt Count 292, MPV 10.3, Neut % (Auto) 77.6, Lymph % (Auto) 16.9, Burke % (Auto) 4.7, Eos % (Auto) 0.4, Baso % (Auto) 0.4, Neut # (Auto) 10.6 H, Lymph # (Auto) 2.3, Burke # (Auto) 0.6, Eos # (Auto) 0.1, Baso # (Auto) 0.1, Sodium 139, Potassium 3.5, Chloride 101, Carbon Dioxide 28, Anion Gap 13.5, BUN 14, Creatinine 0.80, Estimated Creat Clear 123, Estimated GFR 77, Est GFR ( Amer) 93, Glucose 139 H, Calcium 9.1, Total Bilirubin 0.6, AST 57 H, ALT 30, Alkaline Phosphatase 62, Troponin I < 0.01, Total Protein 7.5, Albumin 4.6, Globulin 2.9, Albumin/Globulin Ratio 1.6, Lipase 59, Serum HCG, Qual Negative 08/27/24 14:39 08/27/24 14:39 Orders (Tests/Meds): ED MEDICATIONS Discontinued Medications Generic Name Dose Route Start Last Admin Trade Name Freq PRN Reason Stop Dose Admin Acetaminophen 1,000 mg 08/27/24 14:31 08/27/24 14:41 Acetaminophen 1,000mg/100ml Vial IV 08/27/24 14:32 1,000 mg ONCE ONE Administration Iopamidol 75 ml 08/27/24 16:19 08/27/24 16:20 Iopamidol-370 (76%);100ml Bottle IV 08/27/24 16:20 75 ml ONCE ONE Administration Ketorolac Tromethamine 15 mg 08/27/24 14:31 08/27/24 14:40 Ketorolac 30mg/Ml Vial IV 08/27/24 14:32 15 mg ONCE ONE Administration Ondansetron HCl 4 mg 08/27/24 14:31 08/27/24 14:41 Ondansetron 4mg/2ml Vial IV 08/27/24 14:32 4 mg ONCE ONE Administration Sodium Chloride 10 ml 08/27/24 16:19 08/27/24 16:20 Sodium Chloride 0.9% 10ml Syr (Rad Only) IV 08/27/24 16:20 10 ml ONCE ONE Administration ORDERS Category Date Time Status CT abdomen pelvis w con Stat Cat Scan 08/27/24 15:13 Completed POCUS Point of Care (ER Only) Stat Exams 08/27/24 14:19 Completed XR chest portable Stat Exams 08/27/24 14:13 Completed Complete Blood Count Auto Diff Stat Lab 08/27/24 14:39 Completed Comprehensive Metabolic Panel Stat Lab 08/27/24 14:39 Completed HCG Qualitative, Serum Stat Lab 08/27/24 14:39 Completed HIV Combo Stat Lab 08/27/24 16:00 Ordered Hepatitis C Ab Qual. W/ RFX Stat Lab 08/27/24 16:00 Ordered Lipase Stat Lab 08/27/24 14:39 Completed Troponin I Q3H Lab 08/27/24 17:15 Ordered Troponin I Q3H Lab 08/27/24 20:15 Ordered Troponin I Q3H Lab 08/27/24 23:15 Ordered Troponin I Stat Lab 08/27/24 14:39 Completed Urinalysis and Microscopic Stat Lab 08/27/24 14:22 Completed Urine Culture Stat Micro 08/27/24 14:22 Received Medical Decision Narrative: 48-year-old female presenting with abdominal pain. She states that she was sitting at lunch just prior to arrival when she had epigastric abdominal pain that was sharp, stabbing, went through to her back, was clammy. No syncopal episode. Was severe in intensity at onset, has improved since it started. No shortness of breath, chest pain, diarrhea, fevers or chills, or any other concern. History was obtained via conversation with patient. On arrival, patient hemodynamically stable, alert, oriented x4, appropriate, GCS 15, moving all extremities spontaneously, pupils equal and reactive to light. Full physical exam performed and significant for very clinically well-appearing female no acute distress. Her abdomen is soft, nondistended, but moderately tender in her epigastrium with positive Ayon sign. No overlying skin changes. Differential includes female abdominal pain. Patient placed on continuous cardiac monitoring and continuous pulse ox with initial blood pressure 153/91, heart rate 79, saturation 100% on room air. Independent interpretation of EKG shows sinus rhythm [address] 157, QRS 77, QTc 411. Normal axis and no acute ischemic change. Patient was given Toradol and acetaminophen for symptomatic management and correction of underlying abnormalities. Workup independently interpreted and significant for mild leukocytosis 13.7. Bedside [id number] ultrasound was performed, on independent TURP Tatian, this was negative for any acute gallbladder pathology or right upper quadrant abnormalities. Prior to rest of workup, care handed off to oncoming physician Generator Operator disclaimer Much of this encounter note is an electronic hydrogen braze furnace operator spoken language to printed text. Electronic hydrogen braze furnace operator of the spoken language may permit errors. Although I have reviewed the note, some errors may still exist. <Heather Dinh MD - Last Filed: 08/27/24 17:40> Vital Signs: 08/27/24 14:09 08/27/24 14:30 08/27/24 15:00 Temperature 98.7 F Temperature Source Temporal Artery Scan Pulse Rate 79 68 Pulse Rate [Right] 79 Respiratory Rate 18 Blood Pressure 153/91 H 140/84 Blood Pressure [Right Arm] 133/75 Blood Pressure Mean [Right Arm] 94 Blood Pressure Source [Right Arm] Automatic Cuff Blood Pressure Position [Right Arm] Sitting 02 Sat by Pulse Oximetry 99 100 99 Oxygen Delivery Method Room Air 08/27/24 15:30 08/27/24 16:00 08/27/24 16:30 Temperature Temperature Source Pulse Rate 68 73 74 Pulse Rate [Right] Respiratory Rate Blood Pressure 147/87 H 154/91 H 149/91 H Blood Pressure [Right Arm] Blood Pressure Mean [Right Arm] Blood Pressure Source [Right Arm] Blood Pressure Position [Right Arm] 02 Sat by Pulse Oximetry 99 100 97 Oxygen Delivery Method Room Air Lab Data Lab Results 08/27/24 14:22: Urine Color Yellow, Urine Appearance Clear, Urine pH 5.5, Ur Specific [place] >= 1.030, Urine Protein Negative, Urine Glucose (UA) Negative, Urine Ketones Negative, Urine Blood Negative, Urine Nitrate Negative, Urine Bilirubin Negative, Urine Urobilinogen 0.2, Ur Leukocyte Esterase Negative, Urine RBC None, Urine WBC Occasional, Ur Squamous Epith Cells 3-5, Calcium Oxalate Crystal 2+, Urine Bacteria 2+ 08/27/24 14:39: WBC 13.7 H, RBC 4.95, Hgb 14.0, Hct 43.6, MCV 88.1, MCH 28.3, MCHC 32.1, RDW 13.4, Plt Count 292, MPV 10.3, Neut % (Auto) 77.6, Lymph % (Auto) 16.9, Burke % (Auto) 4.7, Eos % (Auto) 0.4, Baso % (Auto) 0.4, Neut # (Auto) 10.6 H, Lymph # (Auto) 2.3, Burke # (Auto) 0.6, Eos # (Auto) 0.1, Baso # (Auto) 0.1, Sodium 139, Potassium 3.5, Chloride 101, Carbon Dioxide 28, Anion Gap 13.5, BUN 14, Creatinine 0.80, Estimated Creat Clear 123, Estimated GFR 77, Est GFR ( Amer) 93, Glucose 139 H, Calcium 9.1, Total Bilirubin 0.6, AST 57 H, ALT 30, Alkaline Phosphatase 62, Troponin I < 0.01, Total Protein 7.5, Albumin 4.6, Globulin 2.9, Albumin/Globulin Ratio 1.6, Lipase 59, Serum HCG, Qual Negative Orders (Tests/Meds): ED MEDICATIONS Discontinued Medications Generic Name Dose Route Start Last Admin Trade Name Julio PRN Reason Stop Dose Admin Acetaminophen 1,000 mg 08/27/24 14:31 08/27/24 14:41 Acetaminophen 1,000mg/100ml Vial IV 08/27/24 14:32 1,000 mg ONCE ONE Administration Iopamidol 75 ml 08/27/24 16:19 08/27/24 16:20 Iopamidol-370 (76%);100ml Bottle IV 08/27/24 16:20 75 ml ONCE ONE Administration Ketorolac Tromethamine 15 mg 08/27/24 14:31 08/27/24 14:40 Ketorolac 30mg/Ml Vial IV 08/27/24 14:32 15 mg ONCE ONE Administration Ondansetron HCl 4 mg 08/27/24 14:31 08/27/24 14:41 Ondansetron 4mg/2ml Vial IV 08/27/24 14:32 4 mg ONCE ONE Administration Sodium Chloride 10 ml 08/27/24 16:19 08/27/24 16:20 Sodium Chloride 0.9% 10ml Syr (Rad Only) IV 08/27/24 16:20 10 ml ONCE ONE Administration ORDERS Category Date Time Status CT abdomen pelvis w con Stat Cat Scan 08/27/24 15:13 Completed POCUS Point of Care (ER Only) Stat Exams 08/27/24 14:19 Completed XR chest portable Stat Exams 08/27/24 14:13 Completed Complete Blood Count Auto Diff Stat Lab 08/27/24 14:39 Completed Comprehensive Metabolic Panel Stat Lab 08/27/24 14:39 Completed HCG Qualitative, Serum Stat Lab 08/27/24 14:39 Completed HIV Combo Stat Lab 08/27/24 16:00 Ordered Hepatitis C Ab Qual. W/ RFX Stat Lab 08/27/24 16:00 Ordered Lipase Stat Lab 08/27/24 14:39 Completed Troponin I Q3H Lab 08/27/24 17:15 Ordered Troponin I Q3H Lab 08/27/24 20:15 Ordered Troponin I Q3H Lab 08/27/24 23:15 Ordered Troponin I Stat Lab 08/27/24 14:39 Completed Urinalysis and Microscopic Stat Lab 08/27/24 14:22 Completed Urine Culture Stat Micro 08/27/24 14:22 Received Medical Decision Narrative: 48-year-old female presenting with abdominal pain. She states that she was sitting at lunch just prior to arrival when she had epigastric abdominal pain that was sharp, stabbing, went through to her back, was clammy. No syncopal episode. Was severe in intensity at onset, has improved since it started. No shortness of breath, chest pain, diarrhea, fevers or chills, or any other concern. History was obtained via conversation with patient. On arrival, patient hemodynamically stable, alert, oriented x4, appropriate, GCS 15, moving all extremities spontaneously, pupils equal and reactive to light. Full physical exam performed and significant for very clinically well-appearing female no acute distress. Her abdomen is soft, nondistended, but moderately tender in her epigastrium with positive Ayon sign. No overlying skin changes. Differential includes female abdominal pain. Patient placed on continuous cardiac monitoring and continuous pulse ox with initial blood pressure 153/91, heart rate 79, saturation 100% on room air. Independent interpretation of EKG shows sinus rhythm [address] 157, QRS 77, QTc 411. Normal axis and no acute ischemic change. Patient was given Toradol and acetaminophen for symptomatic management and correction of underlying abnormalities. Workup independently interpreted and significant for mild leukocytosis 13.7. Bedside [id number] ultrasound was performed, on independent TURP Tatian, this was negative for any acute gallbladder pathology or right upper quadrant abnormalities. Prior to rest of workup, care handed off to oncoming physician Generator Operator disclaimer Much of this encounter note is an electronic hydrogen braze furnace operator spoken language to printed text. Electronic hydrogen braze furnace operator of the spoken language may permit errors. Although I have reviewed the note, some errors may still exist. This is Dr. Dinh I took over from Dr. Mckeon around [address] scan. On reassessment this patient appears very well clinically and serial exams are benign. CT scan was performed which I personally interpreted which shows no intra-abdominal pathology. Labs also unremarkable specifically no evidence of acute coronary syndrome pancreatitis or any other explanation for the epigastric abdominal discomfort. Of note patient does have mild elevation in AST she is overweight liver is at the upper limit of normal likely has some fatty liver component. Additionally a 1 cm nonspecific lesion was noted on the CT scan recommended outpatient follow-up patient is aware of this and will likely get an outpatient ultrasound. Overall no definitive explanation for the cause of her symptoms at this point. There is no evidence of an emergent medical condition including intra-abdominal pathology surgical pathology or acute coronary or pulmonary pathology. Patient will follow-up with her primary care doctor she understands there is diagnostic uncertainty and will return with any persistent or worsening of her symptoms. I recommended that she get an outpatient EGD if her symptoms continue. Procedures <Luis Mckeon MD - Last Filed: 08/27/24 15:10> Limited Ultrasound Indication:: Limited RUQ ultrasound Indication: Right upper quadrant pain Identified structures: -Gallbladder -Gallbladder wall -Common bile duct -Liver Findings: Sonographic Ayon sign: Absent Gallstones: Absent Sludge: Absent Pericholecystic fluid: Absent Maximal GB wall thickness (mm) (normal is </= 3mm): Normal Common bile duct width (mm) (normal is </= 6mm): Normal Gallbladder width (cm) (normal is < 4cm): Normal Gallbladder length (cm) (normal is < 10cm): Normal Impression: Normal right upper quadrant ultrasound Images were saved to permanent archive The study was technically adequate CPT 97936-19 This study was performed by me, and I personally interpreted all images/videos. Based on my clinical judgement, these images were adequate and did not necessitate further imaging. Critical Care <Luis Mckeon MD - Last Filed: 08/27/24 15:10> Critical Care Time Critical Care Time: No
[2024-08-27 15:00] LABS: Basophils # 0.1 K/mm3 (0-0.2); Basophils % 0.4 % (0.1-2.0); Eosinophils # 0.1 K/mm3 (0.0-0.4); Eosinophils % 0.4 % (0.1-12.0); Hematocrit 43.6 % (37.0-47.0); Lymphocytes # 2.3 K/mm3 (0.7-4.5); Lymphocytes % 16.9 % (10-50); Mean Corpuscular HGB Conc 32.1 g/dL (31.8-35.4); Mean Corpuscular Hemoglobin 28.3 pg (27.0-31.2); Mean Corpuscular Volume 88.1 fl (81-99); Mean Platelet Volume 10.3 fl (7.4-10.4); Monocytes # 0.6 K/mm3 (0.1-1.0); Monocytes % 4.7 % (1.7-9.3); Neutrophils # 10.6 K/mm3 (1.8-7.8); Neutrophils % 77.6 % (37.0-80.0); Platelet Count 292 K/mm3 (142-424); Red Blood Count 4.95 M/mm3 (4.20-5.40); Red Cell Distribution Width 13.4 % (11.5-17.5); White Blood Count 13.7 K/mm3 (4.8-10.8)
[2024-08-27 15:02] LABS: Alanine Aminotransferase 30 U/L (12-78); Albumin/Globulin Ratio 1.6 (1.1-1.8); Alkaline Phosphatase 62 U/L (38-126); Anion Gap 13.5 mEq/L (5-15); Aspartate Amino Transferase 57 U/L (14-36); Bilirubin,Total 0.6 mg/dl (0.2-1.3); Blood Urea Nitrogen 14 mg/dl (7-17); Calcium 9.1 mg/dl (8.4-10.2); Carbon Dioxide 28 mmol/L (22.0-30.0); Creatinine Clearance Estimated 123 mL/min (50-200); Estimated Glomerular Filt Rate 77 ml/min (>60); GFR (African American) 93 ML/MIN (>60); Globulin 2.9 g/dL (1.3-3.2); Glucose 139 mg/dl (74-100); Lipase 59 U/L (23-300); Total Protein,Serum 7.5 g/dl (6.3-8.2)
[2024-08-27 15:11] LABS: HCG Qualitative, Serum Negative (Negative)
--- NOTE | 2024-08-27 15:13 | CT_ITS ---
PROCEDURE INFORMATION: Exam: CT Abdomen And Pelvis With Contrast Exam date and time: 08/27/2024 4:09 PM Age: 48 years old Clinical indication: Abdominal pain; Additional info: Sudden epigastric abd pain TECHNIQUE: Imaging protocol: Computed tomography of the abdomen and pelvis with contrast. Radiation optimization: All CT scans at this facility use at least one of these dose optimization techniques: automated exposure control; mA and/or kV adjustment per patient size (includes targeted exams where dose is matched to clinical indication); or iterative reconstruction. Contrast material: ISOVUE; Contrast volume: 75 ml; Contrast route: IV; COMPARISON: CR XR CHEST 2V 04/18/2024 4:07 PM FINDINGS: Lungs: Lung bases are clear. Liver: 1.3 cm hypodense lesion in the right hepatic lobe (series 2, image 29). Incompletely characterized in this examination.Nonemergent ultrasound follow-up is recommended. Liver is enlarged measuring 17 cm. The liver is otherwise unremarkable. Gallbladder and biliary ducts: Gallbladder is normal. There is no evidence of biliary ductal dilation. Pancreas: The pancreas is normal. Spleen: The spleen is normal. An accessory splenule is present. Adrenal glands: Adrenal glands are normal. Kidneys and ureters: The kidneys are normal. No hydroureter. Stomach and bowel: No bowel obstruction or significant bowel wall thickening. Mild constipation. The stomach is normal. Duodenum is unremarkable. Appendix: A normal appendix is identified. Intraperitoneal space: There is no evidence of free intraperitoneal or pelvic fluid. No intraperitoneal fluid collections. There is no free intraperitoneal air. Vasculature: Portal venous system is patent. The vasculature is normal. A retroaortic left renal vein is incidentally noted. Lymph nodes: No concerning adenopathy. Urinary bladder: The bladder is normal. Reproductive: 4 x 3.8 cm left adnexal cyst without enhancing septations or nodular components. The reproductive organs are otherwise unremarkable. Bones/joints: No acute skeletal abnormality or aggressive osseous lesion. Soft tissues: Fat containing umbilical hernia. No acute soft tissue findings. IMPRESSION: 1. No acute abdominopelvic pathology. 2. 4 x 3.8 cm left adnexal cyst without enhancing septations or nodular components. No further imaging is recommended. (Reference: Jose J) 3. Incidental findings as above. REFERENCES: Jose J et al. Management of Incidental Adnexal Findings on CT and MRI: A White Paper of the ACR Incidental Findings Committee, J Am Amanda Radiol. 2019;17(2):248-254.
[2024-08-27 15:17] LABS: Appearance,Urine CLEAR (Clear); Bilirubin,Urine Negative (Negative); Blood, Urine Negative (Negative); Color,Urine YELLOW (Yellow); Glucose,Urine (UA) Negative (Negative); Ketones,Urine Negative (Negative); Leukocyte Esterase,Urine Negative (Negative); Nitrate,Urine Negative (Negative); PH,Urine 5.5 (5.0-8.5); Protein,Urine Negative (Negative); Specific Gravity, Urine >= 1.030 (1.005-1.030); Urobilinogen,Urine 0.2 EU/dl (0.2)
[2024-08-27 15:18] LABS: Troponin I < 0.01 ng/ml (0.00-0.034)
[2024-08-27 15:30] LABS: Bacteria,Urine 2+ /lpf; Calcium Oxalate Crystals,Urine 2+ /lpf; WBC,Urine Occasional #/hpf (0-3)
--- NOTE | 2024-08-27 15:50 | PC.NURSE ---
PT AND FAMILY UPDATED ON POC
--- NOTE | 2024-08-27 16:08 | PC.NURSE ---
PT TO CT
[2024-08-27] MEDS: SODIUM CHLORIDE 0.9% 10ML SYR (RAD ONLY) 10 ML IV (16:20)
[2024-08-27] MEDS: IOPAMIDOL-370 (76%);100ML BOTTLE 75 ML IV (16:20)
--- NOTE | 2024-08-27 16:20 | PC.NURSE ---
PT RETURNED FROM CT
--- NOTE | 2024-08-27 17:24 | PC.NURSE ---
DR SUAZO AT BEDSIDE
[2024-08-27 19:40] LABS: HIV Combo NEGATIVE (Negative)
[2024-08-27 19:49] LABS: Hepatitis C Ab Qual. W/ RFX NEGATIVE (Negative)
== END 2024-08-27 17:53 | disposition home or self-care (01) ==
PROVIDERS: Emergency Provider Emergency Medicine; PCP Internal Medicine Adolescent Medicine
DX: R74.01 Elevation of levels of liver transaminase levels (principal); K76.9 Liver disease, unspecified; E66.9 Obesity, unspecified; R10.13 Epigastric pain; M54.9 Dorsalgia, unspecified; R11.0 Nausea; R23.1 Pallor; R23.2 Flushing
CPT/HCPCS: 71045; 74177; 80053; 81001; 83690; 84484; 84703; 85025; 86803; 87086; 87389; 93005; 96374; 96375; 99285; J0131; J1885; J2405; Q9967

== ENCOUNTER 2024-09-11 09:06 | Outpatient (CLI) | payer BC, SELFPAY ==
--- OUTSIDE RECORDS SUMMARY | 2024-09-11 09:08 | XMS_ITS ---
Author Organization Unknown Medications Medication Instructions Effective Dates (start - stop) Status valacyclovir 500 MG Oral Tablet [id number]:00:00.000+00:00 - Completed empagliflozin 10 MG Oral Tab let [Jardiance] [id number]:00:00.000+00:0 0 - Completed valacyclovir 500 MG Oral Tablet [id number]:00:00.000+00:00 - Completed valacyclovir 500 MG Oral Tablet [id number]:00:00.000+00:00 - Completed celecoxib 200 MG Oral Capsule 20-05-02:00:00.000+00:00 - Completed valacyclovir 500 MG Oral Tablet [id number]:00:00.000+00:00 - Completed empagliflozin 10 MG Oral Tab let [Jardiance] [id number]:00:00.000+00:0 0 - Completed empagliflozin 10 MG Oral Tab let [Jardiance] [id number]:00:00.000+00:0 0 - Completed valacyclovir 500 MG Oral Tablet [id number]:00:00.000+00:00 - Completed empagliflozin 10 MG Oral Tab let [Jardiance] [id number]:00:00.000+00:0 0 - Completed valacyclovir 500 MG Oral Tablet [id number]:00:00.000+00:00 - Completed empagliflozin 10 MG Oral Tab let [Jardiance] [id number]:00:00.000+00:0 0 - Completed valacyclovir 500 MG Oral Tablet [id number]:00:00.000+00:00 - Completed empagliflozin 10 MG Oral Tab let [Jardiance] [id number]:00:00.000+00:0 0 - Completed empagliflozin 10 MG Oral Tab let [Jardiance] [id number]:00:00.000+00:0 0 - Completed Patient Care team information Name Category Status Period Participants - - Proposed period not known -
--- OUTSIDE RECORDS SUMMARY | 2024-09-11 09:08 | XMS_ITS | Data Portability ---
Author Organization [facility] Address [address] [place] [address] Assessment Encounter Date Assessment Date Assessment LastModified by Organization Details LastModified Time 06/19/2024 06/19/2024 f/u in 3 weeks (overbook) [email or web address] Not available 06/19/2024 11:04:25 Plan of Treatment Reminders Order Date Submit Date Provider Last Modified By Organization Details Last Modified Time Details Appointments DERMATOLO GY VISIT 2024 10:50A M FAUSTO SALES MD Not available Not available Not available Lab None recorded. Referral None recorded. Procedures None recorded. Surgeries None recorded. Imaging None recorded. Medication Orders mometason e 0.1 % topical ointment 2024 025 [facility], [address] [place] [address], [id number], 06/20/2024 12:47:45 Patient TargetsNo targets recorded. Patient Instructions Encounter Date Encounter Id Patient Instructions Last Modified By Organization Details Last Modified Time 06/19/2024 [id number] General Skin Protection: - SPF 30 or higher broad-spectrum sunscreen recommended with re-application every 2 hours - Sun protection measures: including wide-brimmed hat, sun-protective clothing, and avoidance of sun during peak hours of 10am-4pm - Avoid tanning beds as these can increase the chances of all 3 types of skin cancer -Please call us for appointment with any changing or worrisome lesions or skin conditions. [email or web address] Not available 06/19/2024 10:58:23 Reason for Referral None Reported. Medical Equipment None Reported. Medications Name Sig Start Date Stop Date Status Note LastModified by Organization Details LastModified Time mometasone 0.1 % topical ointment apply a thin layer to affected area on chest twice daily for up to 10-14 days or until clear. Then decrease to 1-2 times weekly to maintain improvement 2024 active Not Available Not Available Not Avai lable Vitals None Recorded Social History None recorded. Functional Status None recorded. Mental Status None recorded. Family History Nothing Reported. Medical History No medical history recorded. Gynecological HistoryNo gynecological history recorded. Obstetrics History GPAL:G 0 P 0 0 0 0 Past Encounters Encounter ID Performer Location Encounter Start Date Encounter Closed Date Diagnosis/Indication Diagnosis SNOMED-CT Code Diagnosis ICD10 Code Diagnosis Note [id number] FAUSTO SALES [facility] [address] [facility] [place] [id number] 06/19/2024 10:52:51 06/19/2024 11:09:12 Solar lentiginosis 577743283 L81.4 Benign reassuranc e recommende d sun protective clothing and a mineral based sunscreen 30 SPF or higher lotion OTC daily Raised donya orrheic keratosis 8814250469 10137 L82.1 Benign Reassuranc e Hemangioma [id number] D18 .00 Benign Reassuranc e Multiple b enign melanocytic nevi 409227182 D22.5 Benign Reassuranc e Atopic dermatitis 852084 01 L20.9 1) Bathe or shower daily to every other day for 5-10 minutes. Long hot baths/show ers dry out the skin. Gentle soaps may be used. Avoid bubble baths. Pat dry with towel (no rubbing) and apply moisturize r after bathing. Gentle soaps: Cetaphil gentle cleansing bar Vanicream bar Vanicream liquid cleanser 2) Shampoo scalp with fragrance- free shampoo or gentle cleanser as needed. Be sure not to sit in bath water containing shampoo residue. 3) If medication is needed, apply medication (s) below to rough, red, raised areas prior to applying moisturize r: For the Body: {{Fluticas one 0.005% ointment M ometasone 0.1% ointment* Clobetasol 0.05% ointment}} twice a day to affected area(s) on body for up to 10-14 days or until smooth, then decrease to 1-2 times weekly to maintain improvemen t Some patients require applicatio n of medication a few times a week to manage flare-ups. 4) Moisturize at least 2-3 times every day with one of the products listed below: Vaseline petroleum jelly CeraVe Baby Cream or CeraVe cream or CeraVe healing ointment Vanicream or Vanicream ointment Note: Ointments and creams are more moisturizi ng than lotions. Health Concerns Section Related Observation LastModified by Organization Detai ls LastModified Time None Recorded Concern Status LastModified by Organization Details LastModified Time None Recorded Advance Directives Directive None Recorded Payers Encounter Date Sequence Insurance Name Policy Number Policy Sabillon Covered Member ID Sabillon Member ID Guarantor Name 06/19/2024 1 [employer] [id number] Oneyda Snowden [id number] Oneyda Snowden Notes Date Note Type Note Provider Name and Address Organization Details Recorded Time 06/19/2024 text/html New Patient - self referred Presents for full skin check Denies any other new or changing lesions. Feels well today. Denies family history of malignant melanoma. FAUSTO SALES MD [address] [place] [address], [phone], [facility] 06/19/2024 21:27:10 OBGyn Episode No OBEpisode recorded.
--- NOTE | 2024-09-11 09:10 | MR_ITS ---
FINAL REPORT TECHNIQUE: Multiplanar and multisequence imaging was obtained before and after the intravenous injection of gadolinium contrast. CLINICAL HISTORY: RUQ ABDMNL PAIN/ELEVATED LFTS PRIOR CT SCAN COMPARISON: CT abdomen and pelvis dated 08/27/2024 FINDINGS: There is a 12 mm T2 hyperintense, T1 hypointense lesion in the posterior right lobe of the liver corresponding to the abnormality seen on CT. No additional liver lesion is seen. The gallbladder is present. There are no gallstones. There is no biliary ductal dilatation. The spleen is normal in size and signal intensity. The adrenal glands are without acute abnormality. There is no pancreatic mass or pancreatic ductal dilation. There is no hydronephrosis or renal mass. The kidneys are unremarkable. Limited evaluation of the GI tract is without acute abnormality. There is no abdominal lymphadenopathy or ascites. Postcontrast images reveal subtle peripheral enhancement which fills centrally with time; although, there is not nodular or discontinuous enhancement and is favored to represent an atypical hemangioma. No other areas of abnormal enhancement are seen. 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 Consider follow-up if clinically indicated. Otherwise, no acute abnormality. Reviewed, Interpreted and Dictated by Fay Mercado MD Transcribed by Brandi Jones Authenticated and [facility]
[2024-09-11] MEDS: SODIUM CHLORIDE 0.9% 10ML SYR (RAD ONLY) 10 ML IV (10:02)
[2024-09-11] MEDS: SODIUM CHLORIDE 0.9% 50ML BAG 20 ML IV (10:02)
[2024-09-11] MEDS: GADOTERIDOL INJ 20ML SYRINGE 18 ML IV (10:02)
== END 2024-09-11 23:59 | disposition home or self-care (01) ==
LOC: RAD 09:07
PROVIDERS: PCP Internal Medicine Adolescent Medicine; Visit Provider Internal Medicine Adolescent Medicine
DX: R10.11 Right upper quadrant pain (principal); R79.89 Other specified abnormal findings of blood chemistry; R93.2 Abnormal findings on diagnostic imaging of liver and biliary tract
CPT/HCPCS: 74183; 76376; A9576